=== PATIENT | female | born 1985 | race African-American/Black ===

== ENCOUNTER 2016-09-19 14:03 | Emergency (ER) | payer MEDICAID ==
[~2016-09-19] VITALS: Ht 175.3 cm; Wt 70.0 kg
[~2016-09-19 14:03] MED LIST: AZIT250T3 PO
[2016-09-19 14:04] VITALS: BP 125/79; PULSE 109; RESP 12; TEMP 98.8; O2SAT 98
[2016-09-19] MEDS ORDERED: THERTAB3 PO (14:21)
--- NOTE | 2016-09-19 14:39 | PD ---
HPI Chief Complaint: Cold / Flu Symptoms Time Seen by Provider: 14:37 Travel History International Travel<30 days: No Contact w/Intl Traveler<30days: No Traveled to known affect area: No History of Present Illness HPI 31-year-old female presents to the emergency department for evaluation of flulike symptoms for 4 days. Patient reports cough, congestion, chills, body aches, intermittent fevers. Patient states she did have a fever up to 101 this morning. She has no current fever. Patient states she has no chronic medical problems and takes no prescribed medications. Patient does report intermittent low abdominal pain, has not at this time. She denies any chance of . She denies any other normal vaginal discharge. Patient denies any nausea or vomiting. No chest pain. No other complaints. PFSH Past Medical History Asthma: Yes ?: Not LMP: 08/2016 Social History Alcohol Use: No Tobacco Use: No Substance Use: No Allergies-Medications (Allergen,Severity, Reaction): Coded Allergies: Lortab (Verified Allergy, Severe, 09/19/16) Penicillin (Verified Allergy, Severe, 09/19/16) Percocet (Verified Allergy, Severe, 09/19/16) Shellfish (Verified Allergy, Severe, 09/19/16) Tramadol (Verified Allergy, Severe, 09/19/16) Vicodin (Verified Allergy, Severe, 09/19/16) Reported Meds & Prescriptions Reported Meds & Active Scripts Active Reported Theraflu Severe Cold Daytime (Ovquguoldyosidts-Pxyhbuwhozvpg-Jyzcydmj) 15-5-325 Mg Tab 1 Tab PO Q6H PRN Review of Systems Except as stated in HPI: all other systems reviewed are Neg Physical Exam Narrative GENERAL: Well-developed well-nourished female patient, ambulatory. Afebrile. Vital signs stable. SKIN: Warm and dry. HEAD: Normocephalic. Atraumatic. ENT: Mucosa pink and moist. No erythema or exudates. No uvular edema. No uvular , palatal, or tonsillar deviation. Airway patent. Nasal turbinates appear normal without nasal blood, purulent drainage or septal hematoma. Bilateral tympanic membranes are clear without erythema or perforation. EYES: No scleral icterus. No injection or drainage. NECK: Supple, trachea midline. No JVD or lymphadenopathy. CARDIOVASCULAR: Regular rate and rhythm without murmurs, gallops, or rubs. RESPIRATORY: Breath sounds equal bilaterally. No accessory muscle use. Lungs sounds are clear to auscultation. GASTROINTESTINAL: Abdomen soft, non-tender, nondistended. No abdominal pain to palpation. MUSCULOSKELETAL: No cyanosis, or edema. BACK: Nontender without obvious deformity. No CVA tenderness. Data Data Last Documented VS Vital Signs Date Time Temp Pulse Resp B/P Pulse Ox O2 Delivery O2 Flow Rate FiO2 09/19/16 15:44 93 100 Room Air 09/19/16 14:04 98.8 12 125/79 Orders Urinalysis - C+S If Indicated (09/19/16 14:36) Group A Rapid Strep Screen (09/19/16 14:36) Strep Culture (Group A) (09/19/16 14:50) Labs Laboratory Tests Test 09/19/16 14:50 Urine Color YELLOW Urine Turbidity CLEAR Urine pH 6.5 Urine Specific [place] 1.020 Urine Protein TRACE mg/dL Urine Glucose (UA) NEG mg/dL Urine Ketones NEG mg/dL Urine Occult Blood TRACE Urine Nitrite NEG Urine Bilirubin NEG Urine Urobilinogen LESS THAN 2.0 MG/DL Urine Leukocyte Esterase NEG Urine RBC 1 /hpf Urine WBC 1 /hpf Urine Squamous Epithelial 1 /hpf Cells Urine Mucus FEW /lpf Microscopic Urinalysis Comment CULT NOT INDICATED MDM Medical Decision Making Medical Screen Exam Complete: Yes Emergency Medical Condition: Yes Medical Record Reviewed: Yes Differential Diagnosis Viral URI versus influenza versus strep pharyngitis versus UTI Narrative Course 31-year-old female presents to the emergency department for evaluation the symptoms for 4 days. Patient has cough and congestion. She also states that she has some intermittent mild lower abdominal pain. She has no pain at this time and physical exam is reassuring. Lungs sounds are clear to auscultation. Patient has symptoms for 4 days, therefore influenza swab is not beneficial. Strep swab is ordered and pending. Chest x-ray is ordered and pending. UA is ordered and pending. Strep is negative. UA is negative for acute infection. Patient declined chest x-ray, which I think is reasonable at this time. Symptoms and physical are most consistent with a viral URI. She is instructed to follow-up with her primary care physician. She is return the emergency department for any acute worsening of symptoms. The patient is agreeable to this plan. The patient was discharged in stable condition with instructions, including return instructions and follow up instructions. Diagnosis Primary Impression: Viral URI with cough Referrals: Primary Care Physician call for appointment Patient Instructions: General Instructions, Upper Respiratory Infection (ED) Departure Forms: Tests/Procedures, Work Release Enter return to work date: Sep 21, 2016 Additional Instructions: Rest. [id number] Tylenol or ibuprofen as instructed as needed. Follow-up with your primary care physician. Return to the emergency department for any acute worsening of symptoms. Med/Other Pt SpecificInfo: No Change to Meds Disposition: 01 DISCHARGE HOME Condition: Stable Danii Abraham Sep 19, 2016 14:39
[2016-09-19 15:07] LABS: BLOOD, URINE TRACE (NEG); COMMENT (UR) CULT NOT INDICATED; CULTURE IF INDICATED CULT NOT INDICATED; GLUCOSE,URINE NEG (NEG); KETONE, URINE NEG (NEG); MUCUS URINE FEW /lpf (OCC); NITRITE,URINE NEG (NEG); PH, URINE 6.5 (5.0-8.5); SQUAMOUS EPITHELIAL CELL URINE 1 /hpf (0-5); URINE COLOR YELLOW (YELLW/STRAW)
[2016-09-19 15:44] VITALS: PULSE 93; O2SAT 100
== END 2016-09-19 16:21 | disposition home or self-care (01) ==
LOC: NEPB 14:03
DX: J06.9 Acute upper respiratory infection, unspecified (principal); R05 Cough; J45.909 Unspecified asthma, uncomplicated
CPT/HCPCS: 81001; 87081; 87880; 99283